=== PATIENT | female | born 1960 | race Caucasian/White ===

== ENCOUNTER 2019-12-06 09:09 | Emergency (ER) | payer MEDICAID ==
[~2019-12-06] VITALS: Ht 142.2 cm; Wt 58.0 kg
[2019-12-06] MEDS ORDERED: ONDANSETRON HCL 4MG/2ML INJ IV STA ×2 (09:55→13:35)
[2019-12-06] MEDS ORDERED: SODIUM CHLORIDE 0.9% 1,000 ML IV ONE (10:00)
[2019-12-06 10:04] LABS: BASOPHILS % 0.7 % (0.0-2.0); EOSINOPHILS % 0.4 % (0.0-5.0); HEMATOCRIT. 42.7 % (36.0-48.0); HEMOGLOBIN. 14.6 g/dL (12.0-16.0); LYMPHOCYTES % 8.5 % (20.0-50.0); MEAN CORPUSCULAR HEMOGLOBIN 31.5 pg (28.0-32.0); MEAN CORPUSCULAR VOLUME 92.2 fL (81.0-99.0); MEAN PLATELET VOLUME 9.3 fl (7.4-10.4); MONOCYTES % 4.4 % (2.0-8.0); PLATELET 223 x1000/uL (130-400); RED BLOOD CELL COUNT 4.63 mill/uL (4.2-5.4); RED CELL DISTRIBUTION WIDTH 12.8 % (11.6-14.6)
[2019-12-06 10:09] LABS: CHLORIDE 106 mEq/L (98-107)
[2019-12-06] MEDS ORDERED: ACETAMINOPHEN 500MG TABLET PO ONE (10:45)
[2019-12-06 12:52] LABS: CLARITY URINE CLEAR (CLEAR); COLOR URINE DARK YELLOW (YELLOW); KETONES URINE TRACE (NEGATIVE); LEUKOCYTE ESTERASE URINE TRACE (NEGATIVE); NITRITE URINE NEGATIVE (NEGATIVE); OCCULT BLOOD URINE NEGATIVE (NEGATIVE); PROTEIN URINE 1+ (NEGATIVE); SPECIFIC GRAVITY URINE 1.029 (1.005-1.030)
[2019-12-06] MEDS ORDERED: IOHEXOL-300 100 ML BOTTLE ONE (12:57)
[2019-12-06] MEDS ORDERED: MORPHINE SULFATE 4 MG/ML CPJ (NOT FOR IM USE) IV STA (13:35)
[2019-12-06] MEDS ORDERED: CEFTRIAXONE 1 G PREMIX 50 ML IV ONE (13:45)
[2019-12-06 14:35] VITALS: BP 138/71
== END 2019-12-06 15:00 | disposition home or self-care (01) ==
LOC: ER 10:22
DX: N39.0 Urinary tract infection, site not specified (principal); R11.2 Nausea with vomiting, unspecified; R19.7 Diarrhea, unspecified; Z98.890 Other specified postprocedural states
CPT/HCPCS: 36415; 71045; 74177; 80053; 81003; 83690; 83880; 84484; 85025; 93005; 96361; 96365; 96375; 96376; 99285; J0696; J2270; J2405; J7030; Q9967

== ENCOUNTER 2021-07-17 17:40 | Emergency (ER) | payer MEDICAID, OTHER ==
[~2021-07-17] VITALS: Ht 152.4 cm; Wt 70.0 kg
[2021-07-17 17:58] VITALS: BP 99/62
[2021-07-17] MEDS ORDERED: ACETAMINOPHEN 325MG TABLET PO ONE (18:45)
[2021-07-17 21:35] LABS: CLARITY URINE CLEAR (CLEAR); COLOR URINE ORANGE (YELLOW); KETONES URINE NEGATIVE (NEGATIVE); LEUKOCYTE ESTERASE URINE 1+ (NEGATIVE); NITRITE URINE POSITIVE (NEGATIVE); OCCULT BLOOD URINE NEGATIVE (NEGATIVE); PROTEIN URINE TRACE (NEGATIVE); SPECIFIC GRAVITY URINE 1.023 (1.005-1.030)
[2021-07-17] MEDS ORDERED: OXYB5TAB17 MT (21:40)
[2021-07-17] MEDS ORDERED: NITR-87 MT (21:40)
[2021-07-17] MEDS ORDERED: IBUP-2029 MT (21:40)
[2021-07-17] MEDS ORDERED: NITROFURANTOIN 100MG M/M CAPSULE PO ONE (21:45)
== END 2021-07-17 21:50 | disposition home or self-care (01) ==
LOC: ER 17:40
DX: N39.0 Urinary tract infection, site not specified (principal); Z90.5 Acquired absence of kidney
CPT/HCPCS: 81003; 99283

== ENCOUNTER 2021-10-29 10:03 | Emergency (ER) | payer OTHER ==
[~2021-10-29] VITALS: Ht 142.2 cm; Wt 56.0 kg
[~2021-10-29 10:03] MED LIST: IBUP-2029 MT; NITR-87 MT; OXYB5TAB17 MT
[2021-10-29] MEDS ORDERED: ONDANSETRON 4MG ODT PO ONE (12:15)
[2021-10-29 12:48] LABS: CLARITY URINE CLEAR (CLEAR); COLOR URINE DARK YELLOW (YELLOW); KETONES URINE TRACE (NEGATIVE); LEUKOCYTE ESTERASE URINE 1+ (NEGATIVE); NITRITE URINE NEGATIVE (NEGATIVE); OCCULT BLOOD URINE NEGATIVE (NEGATIVE); PROTEIN URINE TRACE (NEGATIVE); SPECIFIC GRAVITY URINE 1.026 (1.005-1.030)
[2021-10-29 12:53] LABS: BASOPHILS % 0.5 % (0.0-2.0); EOSINOPHILS % 1.9 % (0.0-5.0); HEMATOCRIT. 43.5 % (36.0-48.0); HEMOGLOBIN. 14.9 g/dL (12.0-16.0); LYMPHOCYTES % 17.5 % (20.0-50.0); MEAN CORPUSCULAR VOLUME 90.7 fL (81.0-99.0); MEAN PLATELET VOLUME 9.3 fl (7.4-10.4); MONOCYTES % 7.2 % (2.0-8.0); NEUTROPHILS % 72.9 % (40.0-76.0); PLATELET 185 x1000/uL (130-400); RED CELL DISTRIBUTION WIDTH 12.2 % (11.6-14.6)
[2021-10-29 12:57] LABS: CHLORIDE 106 mEq/L (98-107)
[2021-10-29] MEDS ORDERED: HYDROCODONE/ACETAMINOPHEN 5/325MG TABLET PO ONE (13:45)
[2021-10-29 13:56] VITALS: BP 121/78
[2021-10-29] MEDS ORDERED: CEPH500C2 MT (14:18)
[2021-10-29] MEDS ORDERED: ONDA4TAB50 MT (14:23)
== END 2021-10-29 15:13 | disposition home or self-care (01) ==
LOC: ER 10:07
DX: N39.0 Urinary tract infection, site not specified (principal); R10.32 Left lower quadrant pain; R19.7 Diarrhea, unspecified; E11.9 Type 2 diabetes mellitus without complications; Z87.440 Personal history of urinary (tract) infections; Z98.890 Other specified postprocedural states
CPT/HCPCS: 36415; 74176; 80053; 81003; 83605; 83690; 85025; 99284; Q0162

== ENCOUNTER 2021-11-27 14:07 | Emergency (ER) | payer OTHER ==
[~2021-11-27] VITALS: Ht 152.4 cm; Wt 60.0 kg
[~2021-11-27 14:07] MED LIST changes: +CEPH500C2 MT; +ONDA4TAB50 MT
[2021-11-27] MEDS ORDERED: ONDANSETRON HCL 4MG/2ML INJ IV STA (16:21)
[2021-11-27] MEDS ORDERED: SODIUM CHLORIDE 0.9% 1,000 ML IV ONE (16:30)
[2021-11-27 17:20] LABS: CLARITY URINE CLEAR (CLEAR); COLOR URINE YELLOW (YELLOW); KETONES URINE TRACE (NEGATIVE); LEUKOCYTE ESTERASE URINE NEGATIVE (NEGATIVE); NITRITE URINE NEGATIVE (NEGATIVE); OCCULT BLOOD URINE TRACE (NEGATIVE); PH URINE 5.5 (4.5-8.0); PROTEIN URINE NEGATIVE (NEGATIVE); SPECIFIC GRAVITY URINE 1.011 (1.005-1.030); UROBILINOGEN URINE 0.2 E.U./dL (0.2-1.0)
[2021-11-27 17:21] LABS: BASOPHILS % 0.4 % (0.0-2.0); HEMATOCRIT. 41.3 % (36.0-48.0); LYMPHOCYTES % 14.3 % (20.0-50.0); MEAN CORPUSCULAR HEMOGLOBIN 30.8 pg (28.0-32.0); MEAN CORPUSCULAR VOLUME 90.6 fL (81.0-99.0); MEAN PLATELET VOLUME 9.2 fl (7.4-10.4); MONOCYTES % 4.9 % (2.0-8.0); NEUTROPHILS % 79.4 % (40.0-76.0); PLATELET 218 x1000/uL (130-400); RED BLOOD CELL COUNT 4.55 mill/uL (4.2-5.4); RED CELL DISTRIBUTION WIDTH 12.3 % (11.6-14.6)
[2021-11-27 17:27] LABS: CHLORIDE 104 mEq/L (98-107)
[2021-11-27 17:30] LABS: PROTHROMBIN TIME 11.1 sec (9.6-11.0)
[2021-11-27] MEDS ORDERED: MORPHINE SULFATE 2 MG/ML CPJ (NOT FOR IM USE) IV ONE (19:15)
[2021-11-27] MEDS ORDERED: IOHEXOL-300 100 ML BOTTLE ONE (20:05)
[2021-11-27] MEDS ORDERED: METRONIDAZOLE 500 MG PREMIX 100 ML IV SCH (20:45)
[2021-11-27] MEDS ORDERED: CEFTRIAXONE 1 G PREMIX 50 ML IV SCH (20:45)
[2021-11-27 23:30] VITALS: BP 127/74
== END 2021-11-28 00:01 | disposition short-term general hospital (02) ==
LOC: ER 14:07
DX: K57.92 Diverticulitis of intestine, part unspecified, without perforation or abscess without bleeding (principal); R11.2 Nausea with vomiting, unspecified; R10.30 Lower abdominal pain, unspecified; R19.7 Diarrhea, unspecified; F32.9 Major depressive disorder, single episode, unspecified; Z98.890 Other specified postprocedural states
CPT/HCPCS: 36415; 74177; 80053; 81003; 83690; 85025; 85610; 93005; 96361; 96365; 96367; 96375; 99285; J0696; J2270; J2405; J3490; J7030; Q9967

== ENCOUNTER 2022-05-17 23:25 | Inpatient (IN) | payer OTHER ==
[~2022-05-17] VITALS: Ht 144.8 cm; Wt 55.3 kg
[2022-05-18 00:21] LABS: HEMATOCRIT. 38.2 % (36.0-48.0); HEMOGLOBIN. 13.3 g/dL (12.0-16.0); MEAN CORPUSCULAR HEMOGLOBIN 31.2 pg (28.0-32.0); MEAN CORPUSCULAR VOLUME 89.9 fL (81.0-99.0); MEAN PLATELET VOLUME 8.5 fl (7.4-10.4); PLATELET 221 x1000/uL (130-400); RED BLOOD CELL COUNT 4.25 mill/uL (4.2-5.4); RED CELL DISTRIBUTION WIDTH 12.4 % (11.6-14.6)
[2022-05-18 00:35] LABS: CHLORIDE 102 mEq/L (98-107)
[2022-05-18] MEDS ORDERED: ONDANSETRON HCL 4MG/2ML INJ IV STA ×2 (01:02→03:30)
[2022-05-18] MEDS ORDERED: MORPHINE SULFATE 4 MG/ML CPJ (NOT FOR IM USE) IV STA ×3 (01:02→05:06)
[2022-05-18] MEDS ORDERED: SODIUM CHLORIDE 0.9% 1,000 ML IV ONE ×2 (01:15→05:15)
[2022-05-18 02:33] LABS: CLARITY URINE CLEAR (CLEAR); COLOR URINE ORANGE (YELLOW); KETONES URINE NEGATIVE (NEGATIVE); LEUKOCYTE ESTERASE URINE 1+ (NEGATIVE); NITRITE URINE POSITIVE (NEGATIVE); OCCULT BLOOD URINE NEGATIVE (NEGATIVE); PROTEIN URINE TRACE (NEGATIVE); SPECIFIC GRAVITY URINE 1.024 (1.005-1.030)
[2022-05-18] MEDS ORDERED: CEFTRIAXONE 1GM PREMIX 50 ML IV ONE (02:45)
[2022-05-18] MEDS ORDERED: METRONIDAZOLE 500 MG PREMIX 100 ML IV ONE (04:15)
[2022-05-18] MEDS ORDERED: ACETAMINOPHEN 325MG TABLET PO ONE ×2 (05:15)
[2022-05-18 06:10] VITALS: BP 113/70
[2022-05-18 07:36] LABS: PLATELET ESTIMATE NORMAL
[2022-05-18 08:00] VITALS: BP 118/70
[2022-05-18] MEDS ORDERED: MORPHINE SULFATE 2 MG/ML CPJ (NOT FOR IM USE) IV PRN (08:45)
[2022-05-18] MEDS ORDERED: PANTOPRAZOLE SODIUM 40 MG/VIAL IV SCH (09:00)
[2022-05-18] MEDS ORDERED: NALOXONE HCL 0.4MG/ML VIAL IV PRN (09:00)
[2022-05-18] MEDS ORDERED: DEXT 5%/0.45% NACL 1000ML 1,000 ML IV SCH (09:45)
[2022-05-18 12:00] VITALS: BP 113/62
[2022-05-18] MEDS ORDERED: MORPHINE SULFATE 2 MG/ML CPJ (NOT FOR IM USE) IV NR (12:30)
[2022-05-18] MEDS ORDERED: MORPHINE SULFATE 4 MG/ML CPJ (NOT FOR IM USE) IV PRN (12:45)
[2022-05-18] MEDS ORDERED: PIPERACILLIN/TAZOBACTAM 3.375 G in DEXTROSE 5% WATER 50 ML IV SCH (14:00)
[2022-05-18 16:00] VITALS: BP 119/64
[2022-05-18] MEDS: HYDROMORPHONE HCL/PF 2MG/ML CPJ IV PRN ×2 (16:19→19:28)
[2022-05-18 17:43] VITALS: BP 119/64
[2022-05-18 19:28] VITALS: BP 119/64
== END 2022-05-18 20:00 | disposition short-term general hospital (02) | DRG 720 ==
LOC: ER 23:25 → 7WST 05-18 05:07 → EDBEDREQSVC 05-18 05:09 → EDBEDREQTM 05-18 05:10 → EDBEDREQ 05-18 05:10
PROVIDERS: ADMIT Internal Medicine; ATTEND Internal Medicine
DX: A41.9 Sepsis, unspecified organism (principal); E87.1 Hypo-osmolality and hyponatremia; K57.20 Diverticulitis of large intestine with perforation and abscess without bleeding; I10 Essential (primary) hypertension; Z20.822 Contact with and (suspected) exposure to COVID-19; Z82.49 Family history of ischemic heart disease and other diseases of the circulatory system; Z90.5 Acquired absence of kidney
CPT/HCPCS: 36415; 71045; 74176; 80053; 81003; 83036; 85025; 87426; 99285; C9113; J0696; J1170; J2270; J2405; J2543; J3490; J7030; J7060

== ENCOUNTER 2023-03-28 18:12 | Emergency (ER) | payer OTHER ==
[~2023-03-28] VITALS: Ht 149.9 cm; Wt 56.7 kg
[2023-03-28 18:27] VITALS: O2SAT 97
[2023-03-28 21:53] LABS: BASOPHILS % 0.7 % (0.0-2.0); EOSINOPHILS % 5.4 % (0.0-5.0); HEMOGLOBIN. 13.9 g/dL (12.0-16.0); LYMPHOCYTES % 28.1 % (20.0-50.0); MEAN CORPUSCULAR HEMOGLOBIN 30.8 pg (28.0-32.0); MEAN CORPUSCULAR HGB CONC 33.8 g/dL (31.0-37.0); MEAN PLATELET VOLUME 8.6 fl (7.4-10.4); MONOCYTES % 6.5 % (2.0-8.0); NEUTROPHILS % 59.3 % (40.0-76.0); PLATELET 267 x1000/uL (130-400); RED CELL DISTRIBUTION WIDTH 12.3 % (11.6-14.6); WHITE BLOOD COUNT 8.7 x1000/uL (4.5-11.0)
[2023-03-28 21:54] LABS: DIFFERENTIAL COMMENT 1
[2023-03-28] MEDS: KETOROLAC 15MG/ML VIAL IV ONE (21:57)
[2023-03-28 22:10] LABS: ALANINE AMINOTRANSFERASE 31 IU/L (10-49); ALBUMIN 4.4 g/dL (3.2-4.8); ASPARTATE AMINOTRANSFERASE 19 IU/L (<34); BILIRUBIN TOTAL 0.4 mg/dL (0.1-1.0); CALCIUM 9.2 mg/dL (8.7-10.4); CARBON DIOXIDE 29 mEq/L (21-32); CHLORIDE 104 mEq/L (98-107); CREATININE 0.6 mg/dL (0.6-1.0); GLUCOSE 160 mg/dL (70-105); POTASSIUM 4.4 mEq/L (3.5-5.1); PROTEIN TOTAL 7.2 g/dL (6.0-8.3); SODIUM 139 mEq/L (136-145); UREA NITROGEN BLOOD 13 mg/dL (9-23)
[2023-03-28] MEDS ORDERED: IOHEXOL-300 100 ML BOTTLE ONE (22:38)
[2023-03-29] MEDS: ACETAMINOPHEN WITH CODEINE 300/30MG TABLET PO ONE (01:30)
[2023-03-29] MEDS ORDERED: CYCL5TAB MT (01:33)
[2023-03-29] MEDS ORDERED: NAPR-1176 MT (01:33)
[2023-03-29 02:30] VITALS: BP 142/87; PULSE 85; RESP 16; TEMP 98.1
== END 2023-03-29 02:10 | disposition home or self-care (01) ==
LOC: ER 18:12
DX: S16.1XXA Strain of muscle, fascia and tendon at neck level, initial encounter (principal); S39.012A Strain of muscle, fascia and tendon of lower back, initial encounter; S20.212A Contusion of left front wall of thorax, initial encounter; Z98.890 Other specified postprocedural states; Z79.899 Other long term (current) drug therapy; V49.49XA Driver injured in collision with other motor vehicles in traffic accident, initial encounter; Y93.89 Activity, other specified; Y92.89 Other specified places as the place of occurrence of the external cause; Y99.8 Other external cause status
CPT/HCPCS: 99285; 71260; 96374; 71045; 80053; 83690; 85025; 36415; 72125; 74177; Q9967; J1885

== ENCOUNTER 2023-04-26 20:04 | Emergency (ER) | payer OTHER ==
[~2023-04-26] VITALS: Ht 142.2 cm; Wt 57.0 kg
[~2023-04-26 20:04] MED LIST changes: +CYCL5TAB MT; +NAPR-1176 MT; +OXYB-52 MT; -OXYB5TAB17 MT
[2023-04-26 20:17] VITALS: O2SAT 97
[2023-04-26 20:42] LABS: CLARITY URINE CLEAR (CLEAR); COLOR URINE YELLOW (YELLOW); GLUCOSE URINE 1+ (NEGATIVE); KETONES URINE TRACE (NEGATIVE); LEUKOCYTE ESTERASE URINE NEGATIVE (NEGATIVE); NITRITE URINE NEGATIVE (NEGATIVE); OCCULT BLOOD URINE NEGATIVE (NEGATIVE); PH URINE 5.5 (4.5-8.0); PROTEIN URINE NEGATIVE (NEGATIVE); UROBILINOGEN URINE 0.2 E.U./dL (0.2-1.0)
[2023-04-26 21:07] LABS: BACTERIA URINE 1+; RBC URINE 0-2 /hpf (0-2); SQUAMOUS EPITHELIAL CELL URINE FEW /lpf (RARE/1+); WBC URINE 0-2 /hpf (0-2)
[2023-04-26 22:02] LABS: BASOPHILS % 0.7 % (0.0-2.0); EOSINOPHILS % 3.2 % (0.0-5.0); HEMATOCRIT. 38.3 % (36.0-48.0); HEMOGLOBIN. 13.1 g/dL (12.0-16.0); LYMPHOCYTES % 23.6 % (20.0-50.0); MEAN CORPUSCULAR HEMOGLOBIN 31.3 pg (28.0-32.0); MEAN CORPUSCULAR HGB CONC 34.3 g/dL (31.0-37.0); MEAN CORPUSCULAR VOLUME 91.4 fL (81.0-99.0); MEAN PLATELET VOLUME 8.5 fl (7.4-10.4); MONOCYTES % 7.2 % (2.0-8.0); NEUTROPHILS % 65.3 % (40.0-76.0); PLATELET 228 x1000/uL (130-400); RED BLOOD CELL COUNT 4.19 mill/uL (4.2-5.4); RED CELL DISTRIBUTION WIDTH 13.1 % (11.6-14.6); WHITE BLOOD COUNT 10.3 x1000/uL (4.5-11.0)
[2023-04-26 22:25] LABS: ALANINE AMINOTRANSFERASE 26 IU/L (10-49); ALBUMIN 4.3 g/dL (3.2-4.8); ASPARTATE AMINOTRANSFERASE 18 IU/L (<34); BILIRUBIN TOTAL 0.4 mg/dL (0.1-1.0); CARBON DIOXIDE 24 mEq/L (21-32); CHLORIDE 107 mEq/L (98-107); CREATININE 0.7 mg/dL (0.6-1.0); GLUCOSE 170 mg/dL (70-105); POTASSIUM 4.5 mEq/L (3.5-5.1); PROTEIN TOTAL 7.2 g/dL (6.0-8.3); SODIUM 138 mEq/L (136-145); TROPONIN I HIGH SENSITIVITY < 4 ng/L (3.0-34); UREA NITROGEN BLOOD 16 mg/dL (9-23)
[2023-04-27] MEDS ORDERED: ONDANSETRON HCL 4MG/2ML INJ IV STA (00:56)
[2023-04-27] MEDS: PIPERACILLIN/TAZO 3.375G/50ML 50 ML IV ONE (02:22)
[2023-04-27] MEDS: SODIUM CHLORIDE 0.9% 1,000 ML IV ONE (02:22)
[2023-04-27] MEDS: MORPHINE SULFATE 4 MG/ML INJ (FOR IV/IM USE) IV STA (02:22)
[2023-04-27 04:31] VITALS: BP 112/56; PULSE 87; RESP 17; TEMP 98.5
[2023-04-27] MEDS ORDERED: IOHEXOL-300 100 ML BOTTLE ONE (05:19)
== END 2023-04-27 04:46 | disposition short-term general hospital (02) ==
LOC: ER 20:25
DX: K57.92 Diverticulitis of intestine, part unspecified, without perforation or abscess without bleeding (principal); Z98.890 Other specified postprocedural states; Z79.899 Other long term (current) drug therapy
CPT/HCPCS: 99285; 80053; 81003; 83690; 85025; 84484; 36415; 93005; 74177; 96365; 96375; 83605; 87040; Q9967; J2405; J2543; J2270; J7030

== ENCOUNTER 2023-05-10 09:05 | Emergency (ER) | payer OTHER ==
[~2023-05-10] VITALS: Ht 160 cm; Wt 63.6 kg
[2023-05-10 09:16] VITALS: O2SAT 98
[2023-05-10 10:07] LABS: BASOPHILS % 0.5 % (0.0-2.0); EOSINOPHILS % 1.3 % (0.0-5.0); HEMATOCRIT. 38.5 % (36.0-48.0); HEMOGLOBIN. 13.3 g/dL (12.0-16.0); LYMPHOCYTES % 9.2 % (20.0-50.0); MEAN CORPUSCULAR HEMOGLOBIN 31.3 pg (28.0-32.0); MEAN CORPUSCULAR HGB CONC 34.5 g/dL (31.0-37.0); MEAN CORPUSCULAR VOLUME 90.7 fL (81.0-99.0); MEAN PLATELET VOLUME 8.7 fl (7.4-10.4); MONOCYTES % 4.8 % (2.0-8.0); NEUTROPHILS % 84.2 % (40.0-76.0); PLATELET 260 x1000/uL (130-400); RED BLOOD CELL COUNT 4.24 mill/uL (4.2-5.4); RED CELL DISTRIBUTION WIDTH 13.1 % (11.6-14.6); WHITE BLOOD COUNT 12.9 x1000/uL (4.5-11.0)
[2023-05-10 10:19] LABS: CLARITY URINE CLEAR (CLEAR); COLOR URINE YELLOW (YELLOW); GLUCOSE URINE NEGATIVE (NEGATIVE); KETONES URINE NEGATIVE (NEGATIVE); LEUKOCYTE ESTERASE URINE 1+ (NEGATIVE); NITRITE URINE NEGATIVE (NEGATIVE); OCCULT BLOOD URINE NEGATIVE (NEGATIVE); PH URINE 5.5 (4.5-8.0); PROTEIN URINE NEGATIVE (NEGATIVE); SPECIFIC GRAVITY URINE 1.019 (1.005-1.030); UROBILINOGEN URINE 0.2 E.U./dL (0.2-1.0)
[2023-05-10 10:50] LABS: SQUAMOUS EPITHELIAL CELL URINE 2+ /lpf (RARE/1+)
[2023-05-10 10:51] LABS: MUCUS URINE 1+ /lpf (< = 2+)
[2023-05-10 10:52] LABS: BACTERIA URINE TRACE
[2023-05-10 11:29] LABS: ALANINE AMINOTRANSFERASE 18 IU/L (10-49); ALBUMIN 4.3 g/dL (3.2-4.8); ASPARTATE AMINOTRANSFERASE 18 IU/L (<34); BILIRUBIN TOTAL 0.6 mg/dL (0.1-1.0); CALCIUM 8.8 mg/dL (8.7-10.4); CARBON DIOXIDE 22 mEq/L (21-32); CHLORIDE 109 mEq/L (98-107); CREATININE 0.7 mg/dL (0.6-1.0); GLUCOSE 130 mg/dL (70-105); POTASSIUM 4.5 mEq/L (3.5-5.1); SODIUM 137 mEq/L (136-145); UREA NITROGEN BLOOD 14 mg/dL (9-23)
[2023-05-10] MEDS ORDERED: MORPHINE SULFATE 4 MG/ML INJ (FOR IV/IM USE) IM ONE (12:00)
[2023-05-10] MEDS: MORPHINE SULFATE 4 MG/ML INJ (FOR IV/IM USE) IM SCH (15:39)
[2023-05-10 17:36] VITALS: BP 139/90; PULSE 71; RESP 15; TEMP 98.2
== END 2023-05-10 17:35 | disposition short-term general hospital (02) ==
LOC: ER 09:05 → CANBEDREQ 15:08 → ER 17:35
DX: R10.32 Left lower quadrant pain (principal); E78.00 Pure hypercholesterolemia, unspecified; Z98.890 Other specified postprocedural states
CPT/HCPCS: 80053; 81003; 83690; 85025; 36415; 74176; 76830; 76856; 96372; 99285; J2270; Z7610

== ENCOUNTER 2023-10-21 10:34 | Inpatient (IN) | payer BC, MEDICAID ==
[~2023-10-21] VITALS: Ht 142.2 cm; Wt 47.6 kg
[~2023-10-21 10:34] MED LIST changes: +AMOX1TAB16 MT; -CEPH500C2 MT; +CHOL2000 PO; -CYCL5TAB MT; +FLUC200T51 MT; +GEMF600T PO; -IBUP-2029 MT; -NAPR-1176 MT; -NITR-87 MT; -ONDA4TAB50 MT; -OXYB-52 MT; +TRAM-534 MT
[2023-10-21 14:06] LABS: BASOPHILS % 1.1 % (0.0-2.0); EOSINOPHILS % 5.4 % (0.0-5.0); HEMATOCRIT. 40.5 % (36.0-48.0); HEMOGLOBIN. 13.4 g/dL (12.0-16.0); MEAN CORPUSCULAR VOLUME 94.1 fL (81.0-99.0); MEAN PLATELET VOLUME 8.3 fl (7.4-10.4); MONOCYTES % 5.8 % (2.0-8.0); NEUTROPHILS % 66.7 % (40.0-76.0); PLATELET 230 x1000/uL (130-400); RED CELL DISTRIBUTION WIDTH 13.7 % (11.6-14.6); WHITE BLOOD COUNT 6.7 x1000/uL (4.5-11.0)
[2023-10-21 14:12] LABS: CARBON DIOXIDE 25 mEq/L (21-32); CHLORIDE 104 mEq/L (98-107); POTASSIUM 4.3 mEq/L (3.5-5.1); SODIUM 136 mEq/L (136-145)
[2023-10-21 14:13] LABS: CALCIUM 9.6 mg/dL (8.7-10.4)
[2023-10-21 14:17] LABS: CREATININE 0.6 mg/dL (0.6-1.0); GLUCOSE 86 mg/dL (70-105)
[2023-10-21 14:18] LABS: UREA NITROGEN BLOOD 12 mg/dL (9-23)
[2023-10-21 14:19] LABS: ALANINE AMINOTRANSFERASE 12 IU/L (10-49); ALBUMIN 4.6 g/dL (3.2-4.8); ASPARTATE AMINOTRANSFERASE 15 IU/L (<34)
[2023-10-21 14:20] LABS: BILIRUBIN TOTAL 0.6 mg/dL (0.1-1.0); PROTEIN TOTAL 7.5 g/dL (6.0-8.3)
[2023-10-21] MEDS ORDERED: MORPHINE SULFATE 4 MG/ML INJ (FOR IV/IM USE) IV STA (14:25)
[2023-10-21] MEDS: KETOROLAC 15MG/ML VIAL IV SCH (15:50)
[2023-10-21] MEDS: MORPHINE SULFATE 4 MG/ML INJ (FOR IV/IM USE) IV SCH (15:50)
[2023-10-21] MEDS: ONDANSETRON HCL 4MG/2ML INJ IV SCH (15:50)
[2023-10-21] MEDS: KETOROLAC 15MG/ML VIAL IV ONE (15:50)
[2023-10-21] MEDS: ONDANSETRON HCL 4MG/2ML INJ IV STA (15:50)
[2023-10-21 16:21] LABS: CLARITY URINE CLEAR (CLEAR); COLOR URINE YELLOW (YELLOW); GLUCOSE URINE NEGATIVE (NEGATIVE); KETONES URINE 1+ (NEGATIVE); LEUKOCYTE ESTERASE URINE NEGATIVE (NEGATIVE); NITRITE URINE NEGATIVE (NEGATIVE); OCCULT BLOOD URINE NEGATIVE (NEGATIVE); PROTEIN URINE NEGATIVE (NEGATIVE); SPECIFIC GRAVITY URINE 1.082 (1.005-1.030); UROBILINOGEN URINE 0.2 E.U./dL (0.2-1.0)
[2023-10-21] MEDS ORDERED: PIPERACILLIN/TAZO 3.375G/50ML 50 ML IV SCH (17:00)
[2023-10-21] MEDS: SODIUM CHLORIDE 0.9% 1,000 ML IV ONE (17:16)
[2023-10-21] MEDS: PIPERACILLIN/TAZO 3.375G/50ML 50 ML IV NR (23:13)
[2023-10-21 23:40] VITALS: BP 125/72; PULSE 93; RESP 17; TEMP 36.8072
[2023-10-22] VITALS: BP 125/72; PULSE 93; RESP 17; TEMP 36.78072; O2SAT 94
[2023-10-22] MEDS ORDERED: ONDANSETRON HCL 4MG/2ML INJ IV PRN ×2 (00:30)
[2023-10-22] MEDS: MORPHINE SULFATE 2 MG/ML INJ (NOT FOR IM USE) IV PRN (00:38)
[2023-10-22] MEDS: DEXT 5%/0.45% NACL 1000ML 1,000 ML IV SCH (00:43)
[2023-10-22 04:00] VITALS: BP 100/56; PULSE 89; RESP 19; TEMP 36.61404; O2SAT 97
[2023-10-22] MEDS: PIPERACILLIN/TAZO 3.375G/50ML 50 ML IV SCH (05:46)
[2023-10-22 06:49] LABS: CHLORIDE 106 mEq/L (98-107); POTASSIUM 3.9 mEq/L (3.5-5.1); SODIUM 138 mEq/L (136-145)
[2023-10-22 06:50] LABS: CALCIUM 9.3 mg/dL (8.7-10.4); CARBON DIOXIDE 25 mEq/L (21-32)
[2023-10-22 06:55] LABS: CREATININE 0.6 mg/dL (0.6-1.0); GLUCOSE 111 mg/dL (70-105); UREA NITROGEN BLOOD 8 mg/dL (9-23)
[2023-10-22 07:49] LABS: EOSINOPHILS % 6.2 % (0.0-5.0); HEMATOCRIT. 36.5 % (36.0-48.0); LYMPHOCYTES % 26.3 % (20.0-50.0); MEAN CORPUSCULAR HEMOGLOBIN 30.8 pg (28.0-32.0); MEAN CORPUSCULAR HGB CONC 32.9 g/dL (31.0-37.0); MEAN CORPUSCULAR VOLUME 93.7 fL (81.0-99.0); MEAN PLATELET VOLUME 8.7 fl (7.4-10.4); MONOCYTES % 7.4 % (2.0-8.0); NEUTROPHILS % 59.1 % (40.0-76.0); PLATELET 208 x1000/uL (130-400); RED CELL DISTRIBUTION WIDTH 13.6 % (11.6-14.6); WHITE BLOOD COUNT 5.5 x1000/uL (4.5-11.0)
[2023-10-22 08:00] VITALS: BP 112/59; PULSE 88; RESP 18; TEMP 36.6696; O2SAT 97
[2023-10-23] VITALS: BP 103/57; PULSE 94; RESP 17; TEMP 36.50292; O2SAT 97
[2023-10-23 04:00] VITALS: BP 116/67; PULSE 89; RESP 17; TEMP 36.50292; O2SAT 96
[2023-10-23 08:00] VITALS: BP 108/61; PULSE 90; RESP 18; TEMP 36.55848; O2SAT 98
[2023-10-23 12:00] VITALS: BP 92/47; PULSE 100; RESP 18; TEMP 36.83628; O2SAT 97
[2023-10-23 12:49] LABS: PROTHROMBIN TIME 11.3 sec (9.6-11.0)
[2023-10-23] MEDS ORDERED: AMOX1TAB16 MT (15:13)
[2023-10-23] MEDS ORDERED: SULF1TAB48 MT (15:13)
[2023-10-23 16:00] VITALS: BP 113/68; PULSE 91; RESP 18; TEMP 37.00296; O2SAT 97
[2023-10-23 20:00] VITALS: BP 102/61; PULSE 103; RESP 20; TEMP 36.6696; O2SAT 95
[2023-10-24] VITALS: BP 95/60; PULSE 94; RESP 19; TEMP 36.55848; O2SAT 98
[2023-10-24 04:00] VITALS: BP 90/60; PULSE 89; RESP 18; TEMP 36.44736; O2SAT 95; O2SAT 97
[2023-10-24 08:00] VITALS: BP 100/48; PULSE 90; RESP 18; TEMP 36.61404; O2SAT 96
[2023-10-24 12:00] VITALS: BP 108/58; PULSE 101; RESP 18; TEMP 36.16956; O2SAT 97
[2023-10-24 16:00] VITALS: BP 98/49; PULSE 83; RESP 16; TEMP 36.83628; O2SAT 95
[2023-10-24 20:00] VITALS: BP 105/53; PULSE 102; RESP 20; TEMP 36.50292; O2SAT 96
[2023-10-25] VITALS: BP 116/53; PULSE 95; RESP 20; TEMP 36.28068; O2SAT 97
[2023-10-25 04:00] VITALS: BP 106/53; PULSE 90; RESP 20; TEMP 36.22512; O2SAT 95
[2023-10-25 08:00] VITALS: BP 122/63; PULSE 99; RESP 18; TEMP 36.61404; O2SAT 96
[2023-10-25 08:06] LABS: BASOPHILS % 1.1 % (0.0-2.0); EOSINOPHILS % 6.6 % (0.0-5.0); HEMATOCRIT. 34.7 % (36.0-48.0); HEMOGLOBIN. 11.5 g/dL (12.0-16.0); LYMPHOCYTES % 29.5 % (20.0-50.0); MEAN CORPUSCULAR HEMOGLOBIN 31.1 pg (28.0-32.0); MEAN CORPUSCULAR HGB CONC 33.2 g/dL (31.0-37.0); MEAN CORPUSCULAR VOLUME 93.8 fL (81.0-99.0); MEAN PLATELET VOLUME 8.5 fl (7.4-10.4); MONOCYTES % 8.3 % (2.0-8.0); NEUTROPHILS % 54.5 % (40.0-76.0); PLATELET 181 x1000/uL (130-400); WHITE BLOOD COUNT 5.3 x1000/uL (4.5-11.0)
[2023-10-25 08:21] LABS: CARBON DIOXIDE 25 mEq/L (21-32); CHLORIDE 106 mEq/L (98-107); SODIUM 138 mEq/L (136-145)
[2023-10-25 08:23] LABS: CALCIUM 9.1 mg/dL (8.7-10.4)
[2023-10-25 08:26] LABS: CREATININE 0.7 mg/dL (0.6-1.0)
[2023-10-25 08:27] LABS: GLUCOSE 116 mg/dL (70-105)
[2023-10-25 08:28] LABS: UREA NITROGEN BLOOD 10 mg/dL (9-23)
[2023-10-25 10:01] VITALS: BP 122/63; PULSE 99; TEMP 97.9; O2SAT 96
== END 2023-10-25 11:30 | disposition home health service (06) | DRG 721 ==
LOC: ER 10:34 → EDBEDREQ 17:17 → 5WST 18:14 → 6WST 23:45
PROVIDERS: ADMIT Internal Medicine; ATTEND Internal Medicine
DX: T81.43XA Infection following a procedure, organ and space surgical site, initial encounter (principal); K65.1 Peritoneal abscess; K76.0 Fatty (change of) liver, not elsewhere classified; K57.20 Diverticulitis of large intestine with perforation and abscess without bleeding; N26.1 Atrophy of kidney (terminal); I10 Essential (primary) hypertension; E78.00 Pure hypercholesterolemia, unspecified; Z79.899 Other long term (current) drug therapy; Z82.49 Family history of ischemic heart disease and other diseases of the circulatory system
CPT/HCPCS: 36415; 71045; 74177; 80048; 80053; 81003; 84145; 85025; 99285; C1893; J1885; J2270; J2405; J2543; J7030